=== PATIENT | female | born 1965 | race Caucasian/White ===

== ENCOUNTER 2018-08-09 16:33 | Emergency (ER) | payer MEDICAID ==
[2018-08-09] MEDS ORDERED: Tetracaine HCl/PF 0.5% 4 ML Bottle EYERT ONE (16:53)
--- NOTE | 2018-08-09 17:02 | EDM.PDOC ---
ED HPI GENERAL MEDICAL PROBLEM - General Chief Complaint: Eye Problems Stated Complaint: SOMETHING IN LEFT EYE Time Seen by Provider: 08/09/18 16:53 - History of Present Illness INITIAL COMMENTS - FREE TEXT/NARRATIVE: HISTORY AND PHYSICAL: History of present illness: Patient is a 53-year-old white female presents concern of eye redness and discomfort described as a burning 1 day she denies visual disturbances denies trauma history glaucoma denies nausea vomiting Review of systems: As per history of present illness and below otherwise all systems reviewed and negative. Past medical history: As per history of present illness and as reviewed below otherwise noncontributory. Surgical history: As per history of present illness and as reviewed below otherwise noncontributory. Social history: No reported history of drug or alcohol abuse. Family history: As per history of present illness and as reviewed below otherwise noncontributory. Physical exam: HEENT: Atraumatic, normocephalic, pupils reactive, conjunctiva is injected there is no fluoroscein uptake noted at 5 o'clock position centrally no foreign body anterior chambers clear, mucous membranes moist, throat clear, neck supple , nontender, trachea midline. Lungs: Clear to auscultation, breath sounds equal bilaterally, chest nontender. Heart: S1S2, regular, negative for clicks, rubs, or JVD. Abdomen: Soft, nondistended, nontender. Negative for masses or hepatosplenomegaly. Negative for costovertebral tenderness. Pelvis: Stable nontender. Genitourinary: Deferred. Rectal: Deferred. Extremities: Atraumatic, negative for cords or calf pain. Neurovascular unremarkable. Neuro: Awake, alert, oriented. Cranial nerves II through XII unremarkable. Cerebellum unremarkable. Motor and sensory unremarkable throughout. Exam nonfocal. Diagnostics: Corneal staining Therapeutics: Tetracaine ophthalmic drops irrigation erythromycin ophthalmic ointment Impression: #1 corneal abrasion left eye Definitive disposition and diagnosis as appropriate pending reevaluation and review of above. left eye Pain Score (Numeric/FACES): 9 - Related Data Allergies Allergy/AdvReac Type Severity Reaction Status Date / Time codeine Allergy Cannot Verified 08/09/18 16:46 Remember Sulfa (Sulfonamide Allergy Cannot Verified 08/09/18 16:46 Antibiotics) Remember Home Meds: Home Meds Levothyroxine 175 mcg PO DAILY 08/09/18 [History] Meloxicam 7.5 mg PO DAILY 08/09/18 [History] Past Medical History Other Musculoskeletal History: plantar faciatis Psychiatric History: Reports: Depression - Infectious Disease History Infectious Disease History: Reports: Chicken Pox, Measles - Past Surgical History GI Surgical History: Reports: Cholecystectomy Female Surgical History: Reports: Hysterectomy Endocrine Surgical History: Reports: Thyroidectomy Social & Family History - Family History Family Medical History: Noncontributory - Tobacco Use Smoking Status *Q: Never Smoker - Recreational Drug Use Recreational Drug Use: No ED ROS GENERAL - Review of Systems Review Of Systems: ROS reveals no pertinent complaints other than HPI. ED EXAM GENERAL W FULL EYE - Physical Exam Exam: See Below (See dictation) Course - Vital Signs Last Recorded V/S: Last Vital Signs Temp 36.1 C 08/09/18 16:49 Pulse 96 08/09/18 16:49 Resp 18 08/09/18 16:49 BP 137/99 H 08/09/18 16:49 Pulse Ox 94 L 08/09/18 16:49 - Orders/Labs/Meds Meds: Medications Discontinued Medications Generic Name Dose Route Start Last Admin Trade Name Freq PRN Reason Stop Dose Admin Tetracaine HCl 5 ml 08/09/18 16:53 Tetracaine 0.5% Steri-Unit Bailee EYERT 08/09/18 16:54 ASDIRECTED ONE Departure - Departure Time of Disposition: 17:02 Disposition: Home, Self-Care 01 Condition: Good Clinical Impression: Corneal abrasion - Discharge Information Referrals: PCP,None [Primary Care Provider] - Additional Instructions: The following information is given to patients seen in the emergency department who are being discharged to home. This information is to outline your options for follow-up care. We provide all patients seen in our emergency department with a follow-up referral. The need for follow-up, as well as the timing and circumstances, are variable depending upon the specifics of your emergency department visit. If you don't have a primary care physician on staff, we will provide you with a referral. We always advise you to contact your personal physician following an emergency department visit to inform them of the circumstance of the visit and for follow-up with them and/or the need for any referrals to a consulting specialist. The emergency department will also refer you to a specialist when appropriate. This referral assures that you have the opportunity for followup care with a specialist. All of these measure are taken in an effort to provide you with optimal care, which includes your followup. Under all circumstances we always encourage you to contact your private physician who remains a resource for coordinating your care. When calling for followup care, please make the office aware that this follow-up is from your recent emergency room visit. If for any reason you are refused follow-up, please contact the [facility] emergency department at and asked to speak to the emergency department charge nurse. [facility] [address] [place] [id number] Follow-up ophthalmology clinic call for appointment return as needed as discussed
[2018-08-09] MEDS ORDERED: Erythromycin Base 0.5% Ophth Oint 1 GM Tube EYEBOTH ONE (17:07)
== END 2018-08-09 17:24 | disposition home or self-care (01) ==
LOC: MW.ED 16:33
DX: S05.02XA Injury of conjunctiva and corneal abrasion without foreign body, left eye, initial encounter (principal); Z88.5 Allergy status to narcotic agent; Z88.2 Allergy status to sulfonamides; Z79.899 Other long term (current) drug therapy; X58.XXXA Exposure to other specified factors, initial encounter
CPT/HCPCS: 99283; A9270

== ENCOUNTER 2018-09-16 07:06 | Emergency (ER) | payer MEDICAID ==
[2018-09-16] MEDS ORDERED: Acetaminophen/HYDROcodone 325-7.5 MG Tab PO ONE (08:03)
[2018-09-16] MEDS ORDERED: Ketorolac 60 MG/2 ML SDV IM ONE (08:04)
--- NOTE | 2018-09-17 10:03 | CR ---
EXAM DATE: 09/16/18 PATIENT'S AGE: 53 Patient: RHONDA BHAKTA Facility: [place], [place] Site . Site : 1965 Study: XRay Chest Left RIBS-09/16/2018 8:38:45 AM Ordering Physician: JOSE Final Report: INDICATION: Pain after fall 3 weeks ago TECHNIQUE: PA chest and 2 left ribs. FINDINGS: The lungs are clear. There is no evidence of pulmonary contusion, pneumothorax or pleural effusion. The heart and pulmonary vessels are of normal size. Oblique detail views of the ribs demonstrate no evidence of fracture or intrinsic bone lesion. There is no evidence of pleural hematoma. Curvilinear metallic opacity below the medial left breast looks again needle. IMPRESSION: No fracture. Query possible retained needle or other surgical sequela below the left breast. Dictated by Osman Rivera MD @ Sep 16 2018 8:46AM (Electronic Signature) Report Signed by Proxy. NATHALY
== END 2018-09-16 09:10 | disposition home or self-care (01) ==
LOC: MW.ED 07:06
DX: R07.89 Other chest pain (principal)
CPT/HCPCS: 71101; 93005; 96372; 99283; A9270; J1885

== ENCOUNTER 2018-11-07 19:26 | Emergency (ER) | payer MEDICAID ==
--- NOTE | 2018-11-07 19:56 | EDM.PDOC ---
ED HPI GENERAL MEDICAL PROBLEM - General Chief Complaint: Back Pain or Injury Stated Complaint: PAIN IN LEFT LEG AND LOWER BACK Time Seen by Provider: 11/07/18 19:55 Source of Information: Reports: Patient History Limitations: Reports: No Limitations - History of Present Illness INITIAL COMMENTS - FREE TEXT/NARRATIVE: HISTORY AND PHYSICAL: History of present illness: Patient is a 53-year-old female presents to the ED today with concern for left- sided hip, thigh, and low back pain 1 week. Patient states over the week the pain has progressively worsened to where she is now having a difficult time walking. Patient denies any trauma or injury to her leg. She states she's also noticed a slight increase in swelling of the generalized leg. Patient denies any prior injury to the leg. Patient has not taken anything for her symptoms. Patient denies fever, chills, chest pain, shortness of breath, or cough. Denies headache, neck stiff ness, change in vision, syncope, or near syncope. Denies nausea, vomiting, abdominal pain, diarrhea, constipation, or dysuria. Has not noted any blood in urine or stool. Patient has been eating and drinking appropriately. Patient denies any health history. Review of systems: As per history of present illness and below otherwise all systems reviewed and negative. Past medical history: As per history of present illness and as reviewed below otherwise noncontributory. Surgical history: As per history of present illness and as reviewed below otherwise noncontributory. Social history: See social history for further information Family history: As per history of present illness and as reviewed below otherwise noncontributory. Physical exam: General: Patient is alert, oriented, and in no acute distress. Patient sitting comfortably on exam table. HEENT: Atraumatic, normocephalic, pupils equal and reactive bilaterally, negative for conjunctival pallor or scleral icterus, mucous membranes moist, TMs normal bilaterally, throat clear, neck supple, nontender, trachea midline. No drooling or trismus noted. No meningeal signs. No hot potato voice noted. Lungs: Clear to auscultation, breath sounds equal bilaterally, chest nontender. Heart: S1S2, regular rate and rhythm without overt murmur Abdomen: Soft, nondistended, nontender. Negative for masses or hepatosplenomegaly. Negative for costovertebral tenderness. Pelvis: Stable nontender. Genitourinary: Deferred. Rectal: Deferred. Skin: Intact, warm, dry. No lesions or rashes noted. Extremities: Negative for cords or calf pain. Neurovascular unremarkable. Patient does have pain with palpation of the left hip and thigh. There is mild increase in swelling of the left thigh without erythema. Range of motion of the hip is limited due to pain. Dorsalis pedis and posterior tibial pulses are grossly intact upper extremity. Capillary refill less than 2 seconds. Negative pain to palpation of the spinous process of complete spine without obvious deformities, step-offs, or crepitus. Neuro: Awake, alert, oriented. Cranial nerves II through XII unremarkable. Cerebellum unremarkable. Motor and sensory unremarkable throughout. Exam nonfocal. Patient does have limp with walking, favoring the right leg. Notes: Dr. Paniagua was directly involved in patients care. Discussed the importance for follow-up with a primary care provider and ortho provider. Voices understanding and is agreeable to plan of care. Denies any further questions or concerns at this time. Diagnostics: Lumbar x-ray, left hip x-ray, Femur XR, Lower extremity venous Doppler Therapeutics: Toradol Prescription: Diclofenac, Flexeril, Medrol dose pack Impression: Left hip/leg pain, unspecified Plan: 1. Rest, ice, elevate the affected area. You can apply ice and or heat 15 minutes on, 15 minutes off. 2. Take medications as prescribed and as directed for pain management or discomfort. 3. Follow up with your primary care provider and orthopedic provider as discussed. Return to the ED as needed and as discussed. Definitive disposition and diagnosis as appropriate pending reevaluation and review of above. Left Leg Pain Score (Numeric/FACES): 7 - Related Data Allergies Allergy/AdvReac Type Severity Reaction Status Date / Time codeine Allergy Cannot Verified 11/07/18 19:38 Remember Sulfa (Sulfonamide Allergy Cannot Verified 11/07/18 19:38 Antibiotics) Remember Home Meds: Home Meds Levothyroxine 175 mcg PO DAILY 08/09/18 [History] Meloxicam 7.5 mg PO DAILY 08/09/18 [History] FLUoxetine [PROzac] 150 mg PO DAILY 11/07/18 [History] Past Medical History Other Musculoskeletal History: plantar faciatis Psychiatric History: Reports: Depression - Infectious Disease History Infectious Disease History: Reports: Chicken Pox, Measles, Mumps - Past Surgical History GI Surgical History: Reports: Cholecystectomy Female Surgical History: Reports: Hysterectomy, Tubal Ligation Endocrine Surgical History: Reports: Thyroidectomy Social & Family History - Family History Family Medical History: Noncontributory - Tobacco Use Smoking Status *Q: Never Smoker - Caffeine Use Caffeine Use: Reports: Coffee, Energy Drinks, Soda - Recreational Drug Use Recreational Drug Use: No ED ROS GENERAL - Review of Systems Review Of Systems: ROS reveals no pertinent complaints other than HPI. ED EXAM,LOWER BACK PAIN/INJURY - Physical Exam Exam: See Below (See dictation) Course - Vital Signs Last Recorded V/S: Last Vital Signs Temp 36.7 C 11/07/18 19:39 Pulse 96 11/07/18 19:39 Resp 16 11/07/18 19:39 BP 125/83 11/07/18 19:39 Pulse Ox 97 11/07/18 19:39 - Orders/Labs/Meds Orders: Active Orders 24 hr Category Date Time Status Pelvis 1V or 2V [CR] Stat Exams 11/07/18 21:35 Stop Req Meds: Medications Discontinued Medications Generic Name Dose Route Start Last Admin Trade Name Freq PRN Reason Stop Dose Admin Ketorolac Tromethamine 60 mg 11/07/18 20:06 11/07/18 20:15 Toradol IM 11/07/18 20:07 60 mg ONETIME ONE Administration Departure - Departure Time of Disposition: 21:40 Disposition: Home, Self-Care 01 Clinical Impression: Hip pain Qualifiers: Laterality: left Qualified Code(s): M25.552 - Pain in left hip - Discharge Information Referrals: PCP,Not In Area [Primary Care Provider] - Forms: ED Department Discharge Additional Instructions: The following information is given to patients seen in the emergency department who are being discharged to home. This information is to outline your options for follow-up care. We provide all patients seen in our emergency department with a follow-up referral. The need for follow-up, as well as the timing and circumstances, are variable depending upon the specifics of your emergency department visit. If you don't have a primary care physician on staff, we will provide you with a referral. We always advise you to contact your personal physician following an emergency department visit to inform them of the circumstance of the visit and for follow-up with them and/or the need for any referrals to a consulting specialist. The emergency department will also refer you to a specialist when appropriate. This referral assures that you have the opportunity for follow-up care with a specialist. All of these measure are taken in an effort to provide you with optimal care, which includes your follow-up. Under all circumstances we always encourage you to contact your private physician who remains a resource for coordinating your care. When calling for follow-up care, please make the office aware that this follow-up is from your recent emergency room visit. If for any reason you are refused follow-up, please contact the [facility] Emergency Department at and asked to speak to the emergency department charge nurse. [facility] [address] [place] [id number] [facility] [address] [place] [id number] 1. Rest, ice, elevate the affected area. You can apply ice and or heat 15 minutes on, 15 minutes off. 2. Take medications as prescribed and as directed for pain management or discomfort. 3. Follow up with your primary care provider and orthopedic provider as discussed. Return to the ED as needed and as discussed. - My Orders Last 24 Hours: My Active Orders 11/07/18 21:35 Pelvis 1V or 2V [CR] Stat - Assessment/Plan Last 24 Hours: My Active Orders 11/07/18 21:35 Pelvis 1V or 2V [CR] Stat
[2018-11-07] MEDS ORDERED: Ketorolac 60 MG/2 ML SDV IM ONE (20:06)
--- NOTE | 2018-11-07 21:30 | US ---
INDICATION: Left upper leg pain x1 week TECHNIQUE: Ultrasound venous duplex lower left extremity. Compression venous exam was performed using munson-scale, color Doppler, and spectral Doppler analysis. COMPARISON: None FINDINGS: Sonographic imaging demonstrates the left common femoral, deep femoral, superficial femoral, popliteal, posterior tibial and greater saphenous veins to be fully compressible with normal color Doppler blood flow. IMPRESSION: Normal left lower extremity venous ultrasound, no sign of deep venous thrombosis. Dictated by Ismael George MD @ 11/07/2018 9:28:36 PM Dictated by: Ismael George MD @ 11/07/2018 21:28:41 (Electronically Signed)
--- NOTE | 2018-11-07 21:32 | CR ---
INDICATION: Low back pain, no history of trauma TECHNIQUE: Lumbar spine 3 view. COMPARISON: None available FINDINGS: There is normal lumbar lordosis. The vertebral body heights are maintained and in good alignment. There are 5 [id number] lumbar type vertebral bodies. There is mild disc space narrowing at the L5-S1 level. Tiny anterior osteophytes are seen throughout the lumbar spine. Negative for acute fracture. A surgical clip is seen within the right upper quadrant. IMPRESSION: Early degenerative changes of the lumbar spine. Dictated by Carlyn Gerardo MD @ 11/07/2018 9:31:10 PM Dictated by: Carlyn Gerardo MD @ 11/07/2018 21:31:53 (Electronically Signed)
--- NOTE | 2018-11-07 21:34 | CR ---
INDICATION: Left leg pain, no history of trauma. TECHNIQUE: X-ray left femur, 2 views. COMPARISON: None available. FINDINGS: The femoral head is well formed and well seated within the acetabulum. Negative for acute fracture. No osseous abnormality is seen. The overlying soft tissues unremarkable. No radiopaque foreign body is visualized. IMPRESSION: Unremarkable radiographs of the left femur. Dictated by Carlyn Gerardo MD @ 11/07/2018 9:33:42 PM Dictated by: Carlyn Gerardo MD @ 11/07/2018 21:33:50 (Electronically Signed)
--- NOTE | 2018-11-07 21:36 | CR ---
INDICATION: Left hip pain, no history of trauma TECHNIQUE: X-ray left hip, two views COMPARISON: None available FINDINGS: The femoral head is well formed and well seated within the acetabulum. Negative for acute fracture or dislocation. The overlying soft tissues unremarkable. No radiopaque foreign body is visualized. IMPRESSION: Unremarkable radiographs of the left hip. Dictated by Carlyn Gerardo MD @ 11/07/2018 9:34:53 PM Dictated by: Carlyn Gerardo MD @ 11/07/2018 21:35:01 (Electronically Signed)
== END 2018-11-07 21:49 | disposition home or self-care (01) ==
LOC: MW.ED 19:26
DX: M25.552 Pain in left hip (principal); F32.9 Major depressive disorder, single episode, unspecified; Z88.2 Allergy status to sulfonamides; Z88.5 Allergy status to narcotic agent
CPT/HCPCS: 72100; 73502; 73552; 93971; 96372; 99284; J1885

== ENCOUNTER 2018-11-23 19:08 | Emergency (ER) | payer MEDICAID ==
--- NOTE | 2018-11-23 19:13 | EDM.PDOC ---
ED HPI GENERAL MEDICAL PROBLEM - General Chief Complaint: Lower Extremity Injury/Pain Stated Complaint: LEFT LEG INJURY Time Seen by Provider: 11/23/18 19:09 Source of Information: Reports: Patient History Limitations: Reports: No Limitations - History of Present Illness INITIAL COMMENTS - FREE TEXT/NARRATIVE: HISTORY AND PHYSICAL: History of present illness: Review of systems: As per history of present illness and below otherwise all systems reviewed and negative. Past medical history: As per history of present illness and as reviewed below otherwise noncontributory. Surgical history: As per history of present illness and as reviewed below otherwise noncontributory. Social history: See social history for further information Family history: As per history of present illness and as reviewed below otherwise noncontributory. Physical exam: General: Well-developed and well-nourished 53-year-old female. Alert and oriented. Nontoxic appearing and in no acute distress HEENT: Atraumatic, normocephalic, pupils equal and reactive bilaterally, negative for conjunctival pallor or scleral icterus, mucous membranes moist, TMs normal bilaterally, throat clear, neck supple, nontender, trachea midline. No drooling or trismus noted. No meningeal signs. No hot potato voice noted. Lungs: Clear to auscultation, breath sounds equal bilaterally, chest nontender. Heart: S1S2, regular rate and rhythm without overt murmur Abdomen: Soft, nondistended, nontender. Negative for masses or hepatosplenomegaly. Negative for costovertebral tenderness. Pelvis: Stable nontender. Genitourinary: Deferred. Rectal: Deferred. Skin: Intact, warm, dry. No lesions or rashes noted. Extremities: Atraumatic, moves all extremities per self without difficulty or deficits, negative for cords or calf pain. Neurovascular unremarkable. Neuro: Awake, alert, oriented. Cranial nerves II through XII unremarkable. Cerebellum unremarkable. Motor and sensory unremarkable throughout. Exam nonfocal. Notes: Supportive care measures were reviewed and discussed. Voices understanding and is agreeable to plan of care. Denies any further questions or concerns at this time. Diagnostics: Therapeutics: Prescription: Impression: Plan: Definitive disposition and diagnosis as appropriate pending reevaluation and review of above. - Related Data Allergies Allergy/AdvReac Type Severity Reaction Status Date / Time codeine Allergy Cannot Verified 11/07/18 19:38 Remember Sulfa (Sulfonamide Allergy Cannot Verified 11/07/18 19:38 Antibiotics) Remember Home Meds: Home Meds Levothyroxine 175 mcg PO DAILY 08/09/18 [History] Meloxicam 7.5 mg PO DAILY 08/09/18 [History] FLUoxetine [PROzac] 150 mg PO DAILY 11/07/18 [History] Past Medical History Other Musculoskeletal History: plantar faciatis Psychiatric History: Reports: Depression - Infectious Disease History Infectious Disease History: Reports: Chicken Pox, Measles, Mumps - Past Surgical History GI Surgical History: Reports: Cholecystectomy Female Surgical History: Reports: Hysterectomy, Tubal Ligation Endocrine Surgical History: Reports: Thyroidectomy Social & Family History - Family History Family Medical History: Noncontributory - Caffeine Use Caffeine Use: Reports: Coffee, Energy Drinks, Soda Departure - Discharge Information Referrals: PCP,None [Primary Care Provider] -
[2018-11-23] MEDS ORDERED: Ondansetron 4 MG/2 ML SDV IVPUSH ONE (19:44)
[2018-11-23] MEDS ORDERED: Ketorolac 30 MG/ML SDV IVPUSH ONE (19:44)
[2018-11-23] MEDS ORDERED: Sodium Chloride 0.9% 10 ML Syringe FLUSH PRN (19:45)
[2018-11-23] MEDS ORDERED: Sodium Chloride 0.9% 2.5 ML Syringe FLUSH PRN (19:45)
[2018-11-23] MEDS ORDERED: HYDROmorphone 1 MG/ML Syringe IVPUSH ONE (19:46)
[2018-11-23] MEDS ORDERED: methylPREDNISolone Sodium Succinate 125 MG/2 ML SDV IVPUSH ONE (19:46)
--- NOTE | 2018-11-23 19:49 | EDM.PDOC ---
ED HPI GENERAL MEDICAL PROBLEM - General Chief Complaint: Lower Extremity Injury/Pain Stated Complaint: LEFT LEG INJURY Time Seen by Provider: 11/23/18 19:09 - History of Present Illness INITIAL COMMENTS - FREE TEXT/NARRATIVE: HISTORY AND PHYSICAL: History of present illness: The patient is a 53-year-old female who has been working with a chiropractor over the last few weeks for left sciatica and presents after one of her grandchildren stepped on her flip flop causing her to lose her balance and almost fall forward that she caught herself and since then the pain has been aggravated. The patient says that she did not fall to the ground hitting her head pass out or black out and did not impact any of her bony extremities. She said that he catching herself she twisted and it seems to have reaggravated her sciatica. She says that up until this point she has been working with a chiropractor several times a week and the pain has almost completely dissipated. The patient was seen here the end of October for same and says she is doing much better since that visit. Prior to these events she was in her usual state of good health without systemic issues. She says the pain originates in her left butt cheek and radiates around her left thigh and shoots to her leg. She has no weakness in her leg but there is pain with movement. She has no midline back pain and no bowel or bladder disturbances Review of systems: As per history of present illness and below otherwise all systems reviewed and negative. Past medical history: As per history of present illness and as reviewed below otherwise noncontributory. Surgical history: As per history of present illness and as reviewed below otherwise noncontributory. Social history: No reported history of drug or alcohol abuse. Family history: As per history of present illness and as reviewed below otherwise noncontributory. Physical exam: HEENT: Atraumatic, normocephalic, negative for conjunctival pallor or scleral icterus, mucous membranes moist, throat clear, neck supple, nontender, trachea midline. Lungs: Clear to auscultation, breath sounds equal bilaterally, chest nontender. Heart: S1S2, regular, negative for clicks, rubs, or JVD. Abdomen: Soft, nondistended, nontender. Negative for masses or hepatosplenomegaly. Negative for costovertebral tenderness. Pelvis: Stable nontender. Genitourinary: Deferred. Rectal: Deferred. Extremities: Atraumatic, negative for cords or calf pain. Neurovascular unremarkable. No palpable bony deformities defects or tenderness Neuro: Awake, alert, oriented. Cranial nerves II through XII unremarkable. Cerebellum unremarkable. Motor and sensory unremarkable throughout. Exam nonfocal. Dorsi and plantar flexion is intact 5/5 inclusive of the great toe bilaterally and patellar reflexes are brisk +2 over 4 bilaterally. Back: There are no midline step-offs tenderness defects of the lumbar spine and there is no posterior pelvis tenderness but when I palpate within the buttocks tissue patient says it is exquisitely painful. The patient cannot flex at the hip or do a straight leg rise more than 10-15 without significant discomfort. Diagnostics: [] Therapeutics: IV placement, Dilaudid Zofran Toradol Solu-Medrol Valium Patient is feeling much improved and we will plan for discharge. I've advised her to connect with a provider in the clinic as well as her chiropractor Impression: Acute on chronic left sciatica Definitive disposition and diagnosis as appropriate pending reevaluation and review of above. Left Leg Pain Score (Numeric/FACES): 10 - Related Data Allergies Allergy/AdvReac Type Severity Reaction Status Date / Time codeine Allergy Cannot Verified 11/23/18 19:20 Remember Sulfa (Sulfonamide Allergy Cannot Verified 11/23/18 19:20 Antibiotics) Remember Home Meds: Home Meds Levothyroxine 175 mcg PO DAILY 08/09/18 [History] Meloxicam 7.5 mg PO DAILY 08/09/18 [History] FLUoxetine [PROzac] 150 mg PO DAILY 11/07/18 [History] Past Medical History Other Musculoskeletal History: plantar faciatis Psychiatric History: Reports: Depression - Infectious Disease History Infectious Disease History: Reports: Chicken Pox, Measles, Mumps - Past Surgical History GI Surgical History: Reports: Cholecystectomy Female Surgical History: Reports: Hysterectomy, Tubal Ligation Endocrine Surgical History: Reports: Thyroidectomy Social & Family History - Family History Family Medical History: Noncontributory - Tobacco Use Smoking Status *Q: Never Smoker - Caffeine Use Caffeine Use: Reports: Coffee, Energy Drinks, Soda - Recreational Drug Use Recreational Drug Use: No ED ROS GENERAL - Review of Systems Review Of Systems: ROS reveals no pertinent complaints other than HPI. ED EXAM, GENERAL - Physical Exam Exam: See Below (see dictation) Course - Vital Signs Last Recorded V/S: Last Vital Signs Temp 36.2 C 11/23/18 19:21 Pulse 91 11/23/18 19:21 Resp 24 H 11/23/18 19:21 BP 161/83 H 11/23/18 19:21 Pulse Ox 100 11/23/18 19:21 - Orders/Labs/Meds Orders: Active Orders 24 hr Category Date Time Status Sodium Chloride 0.9% [Saline Flush] Med 11/23/18 19:45 Active 10 ml FLUSH ASDIRECTED PRN Sodium Chloride 0.9% [Saline Flush] Med 11/23/18 19:45 Active 2.5 ml FLUSH ASDIRECTED PRN Saline Lock Insert [OM.PC] Stat Oth 11/23/18 19:44 Ordered Medication Orders Sodium Chloride (Saline Flush) 10 ml FLUSH ASDIRECTED PRN PRN Reason: Keep Vein Open Last Admin: 11/23/18 20:18 Dose: 10 ml Sodium Chloride (Saline Flush) 2.5 ml FLUSH ASDIRECTED PRN PRN Reason: Keep Vein Open Last Admin: 11/23/18 20:18 Dose: 2.5 ml Meds: Medications Generic Name Dose Route Start Last Admin Trade Name Freq PRN Reason Stop Dose Admin Sodium Chloride 10 ml 11/23/18 19:45 11/23/18 20:18 Saline Flush FLUSH 10 ml ASDIRECTED PRN Administration Keep Vein Open Sodium Chloride 2.5 ml 11/23/18 19:45 11/23/18 20:18 Saline Flush FLUSH 2.5 ml ASDIRECTED PRN Administration Keep Vein Open Discontinued Medications Generic Name Dose Route Start Last Admin Trade Name Freq PRN Reason Stop Dose Admin Diazepam 1 mg 11/23/18 19:45 11/23/18 20:16 Valium IVPUSH 11/23/18 19:46 Not Given ONETIME ONE Diazepam Confirm 11/23/18 20:08 11/23/18 20:16 Valium Administered 11/23/18 20:09 Not Given Dose 5 mg .ROUTE .STK-MED ONE Diazepam 1 mg 11/23/18 20:15 11/23/18 20:17 Valium IV 11/23/18 20:16 1 mg ONETIME ONE Administration Hydromorphone HCl 1 mg 11/23/18 19:46 11/23/18 20:17 Dilaudid IVPUSH 11/23/18 19:47 1 mg ONETIME ONE Administration Ketorolac Tromethamine 30 mg 11/23/18 19:44 11/23/18 20:17 Toradol IVPUSH 11/23/18 19:45 30 mg ONETIME ONE Administration Methylprednisolone Sodium Succinate 125 mg 11/23/18 19:46 11/23/18 20:17 Solu-Medrol IVPUSH 11/23/18 19:47 125 mg ONETIME ONE Administration Ondansetron HCl 4 mg 11/23/18 19:44 11/23/18 20:17 Zofran IVPUSH 11/23/18 19:45 4 mg ONETIME ONE Administration Departure - Departure Time of Disposition: 20:49 Disposition: Home, Self-Care 01 Condition: Good Clinical Impression: Left sided sciatica - Discharge Information Referrals: PCP,None [Primary Care Provider] - Forms: ED Department Discharge Additional Instructions: The following information is given to patients seen in the emergency department who are being discharged to home. This information is to outline your options for follow-up care. We provide all patients seen in our emergency department with a follow-up referral. The need for follow-up, as well as the timing and circumstances, are variable depending upon the specifics of your emergency department visit. If you don't have a primary care physician on staff, we will provide you with a referral. We always advise you to contact your personal physician following an emergency department visit to inform them of the circumstance of the visit and for follow-up with them and/or the need for any referrals to a consulting specialist. The emergency department will also refer you to a specialist when appropriate. This referral assures that you have the opportunity for followup care with a specialist. All of these measure are taken in an effort to provide you with optimal care, which includes your followup. Under all circumstances we always encourage you to contact your private physician who remains a resource for coordinating your care. When calling for followup care, please make the office aware that this follow-up is from your recent emergency room visit. If for any reason you are refused follow-up, please contact the [facility] emergency department at and ask to speak to the emergency department charge nurse. [facility] Primary care- Internal Medicine and Family [place] [id number] [place] [address] Take all medications as prescribed and please connect with your chiropractor as well as a clinic provider as you may need more medication going forward to help manage this acute on chronic problem. Return to ER as needed and as discussed - My Orders Last 24 Hours: My Active Orders 11/23/18 19:44 Saline Lock Insert [OM.PC] Stat 11/23/18 19:45 Sodium Chloride 0.9% [Saline Flush] 10 ml FLUSH ASDIRECTED PRN Sodium Chloride 0.9% [Saline Flush] 2.5 ml FLUSH ASDIRECTED PRN - Assessment/Plan Last 24 Hours: My Active Orders 11/23/18 19:44 Saline Lock Insert [OM.PC] Stat 11/23/18 19:45 Sodium Chloride 0.9% [Saline Flush] 10 ml FLUSH ASDIRECTED PRN Sodium Chloride 0.9% [Saline Flush] 2.5 ml FLUSH ASDIRECTED PRN
[2018-11-23] MEDS ORDERED: diazePAM 5 MG/ML MDV ONE (20:08)
[2018-11-23] MEDS ORDERED: diazePAM 5 MG/ML MDV IV ONE (20:15)
== END 2018-11-23 21:13 | disposition home or self-care (01) ==
LOC: MW.ED 19:08
DX: M54.32 Sciatica, left side (principal); F32.9 Major depressive disorder, single episode, unspecified; Z88.2 Allergy status to sulfonamides; Z88.5 Allergy status to narcotic agent; Z79.899 Other long term (current) drug therapy
CPT/HCPCS: 96374; 96375; 99283; A9270; J1170; J1885; J2405; J2930

== ENCOUNTER 2019-03-20 17:27 | Emergency (ER) | payer MEDICAID ==
[2019-03-20] MEDS ORDERED: Sodium Chloride 0.9% 2.5 ML Syringe FLUSH PRN (17:32)
[2019-03-20] MEDS ORDERED: Sodium Chloride 0.9% 10 ML SDV IV PRN (17:32)
[2019-03-20] MEDS ORDERED: Sodium Chloride 0.9% 10 ML Syringe FLUSH PRN (17:32)
--- NOTE | 2019-03-20 17:53 | CT ---
INDICATION: 54-year-old female. Left side facial numbness and pain. Stroke code. TECHNIQUE: CT images foramen [place] vertex are obtained without contrast axial coronal and sagittal reformatted images are reviewed. FINDINGS: The lateral 3rd and 4th ventricles normal in size and shape. No acute intracranial hemorrhage. No mass effect. Preservation of munson-white interface. No hyperdense cerebral artery sign. No evidence of recent ischemic infarction. No areas of abnormal brain density. Bony calvarium is unremarkable. IMPRESSION: Normal CT brain without contrast. No evidence of acute intracranial abnormality. Please note that all CT scans at this facility use dose modulation, iterative reconstruction, and/or weight-based dosing when appropriate to reduce radiation dose to as low as reasonably achievable. Dictated by Houston Berry MD @ Mar 20 2019 5:51PM Signed by Dr. Houston Berry @ Mar 20 2019 5:52PM
[2019-03-20] MEDS ORDERED: methylPREDNISolone Sodium Succinate 125 MG/2 ML SDV IVPUSH ONE (18:28)
[2019-03-20] MEDS ORDERED: Acetaminophen 500 MG Tab PO ONE (18:28)
--- NOTE | 2019-03-20 18:43 | EDM.PDOC ---
ED HPI GENERAL MEDICAL PROBLEM - General Chief Complaint: Neuro Symptoms/Deficits Stated Complaint: POSSIBLE STROKE Time Seen by Provider: 03/20/19 17:32 Source of Information: Reports: Patient History Limitations: Reports: No Limitations - History of Present Illness INITIAL COMMENTS - FREE TEXT/NARRATIVE: HISTORY AND PHYSICAL: History of present illness: Patient is a 54-year-old female presents to the ED today with concern of left- sided facial pain and drooping of her lip. Patient states the symptoms began last night. Last known time well 10pm last night. Patient states the most significant symptom is how painful the area is to the touch. 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 Patient states she also feels as if the hearing on the left side is more sensitive. Patient denies any trauma or injury or any weakness. Patient denies fever, chills, chest pain, shortness of breath, or cough. Denies headache, neck stiff ness, change in vision, syncope, or near syncope. Denies nausea, vomiting, abdominal pain, diarrhea, constipation, or dysuria. Has not noted any blood in urine or stool. Patient has been eating and drinking appropriately. Review of systems: As per history of present illness and below otherwise all systems reviewed and negative. Past medical history: As per history of present illness and as reviewed below otherwise noncontributory. Surgical history: As per history of present illness and as reviewed below otherwise noncontributory. Social history: See social history for further information Family history: As per history of present illness and as reviewed below otherwise noncontributory. Physical exam: General: Patient is alert, oriented, and in no acute distress. Patient laying comfortably on exam table. HEENT: SEe neuro: Atraumatic, normocephalic, pupils equal and reactive bilaterally, negative for conjunctival pallor or scleral icterus, mucous membranes moist, TMs normal bilaterally, throat clear, neck supple, nontender, trachea midline. No drooling or trismus noted. No meningeal signs. No hot potato voice noted. Lungs: Clear to auscultation, breath sounds equal bilaterally, chest nontender. Heart: S1S2, regular rate and rhythm without overt murmur Abdomen: Soft, nondistended, nontender. Negative for masses or hepatosplenomegaly. Negative for costovertebral tenderness. Pelvis: Stable nontender. Genitourinary: Deferred. Rectal: Deferred. Skin: Intact, warm, dry. No lesions or rashes noted. Extremities: Atraumatic, negative for cords or calf pain. Neurovascular unremarkable. Patient will range of motion of bilateral upper and bilateral lower extremities without deficit. Patient did walk into the ED today without difficulty. Neuro: Awake, alert, oriented. Cerebellum unremarkable. Motor and sensory unremarkable throughout.Patient does have some weakness of the left side of her mouth when asked to smile. She does have a circular area of edema/erythema on her maxilla bone/inferior to her eye that slightly obscures her smile an ability to assess for true weakness of her smile. Patient is able to raise both of her eyebrows and squint. The left side of patient's face is quite tender and painful to the touch. Otherwise, exam non focal. and all other cranial nerves II through XII unremarkable. Notes: Stroke code was called upon arrival to the ED Dr. Paniagua directly involved in patient care. Voices understanding and is agreeable to plan of care. Denies any further questions or concerns at this time. Diagnostics: Head CT, CBC, CMP, UA, EKG, chest x-ray, troponin, maxillofacial CT Therapeutics: solumedrol, Tylenol Prescription: Keflex Impression: Preseptal cellulitis Plan: 1. Take medication as prescribed. You can alternate ibuprofen and Tylenol as directed for pain and discomfort. 2. Follow-up with primary care provider as discussed. Return to the ED as needed and as discussed. Definitive disposition and diagnosis as appropriate pending reevaluation and review of above. Left Face/Facial Pain Score (Numeric/FACES): 7 - Related Data Allergies Allergy/AdvReac Type Severity Reaction Status Date / Time codeine Allergy Cannot Verified 03/20/19 17:36 Remember Sulfa (Sulfonamide Allergy Cannot Verified 03/20/19 17:36 Antibiotics) Remember Home Meds: Home Meds Levothyroxine 175 mcg PO DAILY 08/09/18 [History] Meloxicam 7.5 mg PO DAILY 08/09/18 [History] Escitalopram [Lexapro] 20 mg PO DAILY 03/20/19 [History] Past Medical History Other Musculoskeletal History: plantar faciatis Psychiatric History: Reports: Depression - Infectious Disease History Infectious Disease History: Reports: None - Past Surgical History GI Surgical History: Reports: Cholecystectomy Female Surgical History: Reports: Hysterectomy, Tubal Ligation Endocrine Surgical History: Reports: Thyroidectomy Social & Family History - Family History Family Medical History: Noncontributory - Tobacco Use Smoking Status *Q: Never Smoker Second Hand Smoke Exposure: No - Caffeine Use Caffeine Use: Reports: None - Recreational Drug Use Recreational Drug Use: No ED ROS GENERAL - Review of Systems Review Of Systems: ROS reveals no pertinent complaints other than HPI. ED EXAM, GENERAL - Physical Exam Exam: See Below (See dictation) Course - Vital Signs Last Recorded V/S: Last Vital Signs Temp 35.9 C 03/20/19 17:36 Pulse 72 03/20/19 19:19 Resp 18 03/20/19 19:19 BP 137/71 03/20/19 19:19 Pulse Ox 98 03/20/19 19:19 - Orders/Labs/Meds Orders: Active Orders 24 hr Category Date Time Status Assess Neurological Status [RC] ASDIRECTED Care 03/20/19 17:32 Active Bedrest [RC] ASDIRECTED Care 03/20/19 17:32 Active Cardiac Monitoring [RC] . DIRECTED Care 03/20/19 17:32 Active EKG Documentation Completion [RC] STAT Care 03/20/19 17:32 Active Height and Weight [RC] UPON Care 03/20/19 17:32 Active Initiate Acute Stroke Protocol [RC] STAT Care 03/20/19 17:32 Active NIH Stroke Scale [RC] ASDIRECTED Care 03/20/19 17:32 Active Nursing Bedside Swallow Screen [RC] ASDIRECTED Care 03/20/19 17:32 Active Oxygen Therapy [RC] ASDIRECTED Care 03/20/19 17:32 Active Stroke Education, General [RC] Click to Edit Care 03/20/19 17:32 Active Vital Signs [RC] Q15M Care 03/20/19 17:32 Active CULTURE URINE [RM] Stat Lab 03/20/19 18:20 Received Sodium Chloride 0.9% [Normal Saline] Med 03/20/19 17:32 Active 10 ml IV ASDIRECTED PRN Sodium Chloride 0.9% [Saline Flush] Med 03/20/19 17:32 Active 10 ml FLUSH ASDIRECTED PRN Sodium Chloride 0.9% [Saline Flush] Med 03/20/19 17:32 Active 2.5 ml FLUSH ASDIRECTED PRN Peripheral IV Insertion Adult [OM.PC] Stat Oth 03/20/19 17:32 Ordered Medication Orders Sodium Chloride (Saline Flush) 10 ml FLUSH ASDIRECTED PRN PRN Reason: Keep Vein Open Last Admin: 03/20/19 18:34 Dose: 10 ml Sodium Chloride (Saline Flush) 2.5 ml FLUSH ASDIRECTED PRN PRN Reason: Keep Vein Open Last Admin: 03/20/19 18:34 Dose: 2.5 ml Sodium Chloride (Normal Saline) 10 ml IV ASDIRECTED PRN PRN Reason: IV Use Labs: Laboratory Tests 03/20/19 03/20/19 03/20/19 Range/Units 18:20 18:25 18:25 WBC 5.92 (4.0-11.0) K/uL RBC 4.40 (4.30-5.90) M/uL Hgb 13.0 (12.0-16.0) g/dL Hct 38.9 (36.0-46.0) % MCV 88.4 (80.0-98.0) fL MCH 29.5 (27.0-32.0) pg MCHC 33.4 (31.0-37.0) g/dL RDW Std Deviation 43.5 (28.0-62.0) fl RDW Coeff of Nafisa 13 (11.0-15.0) % Plt Count 183 (150-400) K/uL MPV 10.70 (7.40-12.00) fL Neut % (Auto) 67.0 (48.0-80.0) % Lymph % (Auto) 23.5 (16.0-40.0) % Pike % (Auto) 7.8 (0.0-15.0) % Eos % (Auto) 1.4 (0.0-7.0) % Baso % (Auto) 0.3 (0.0-1.5) % Neut # (Auto) 4.0 (1.4-5.7) K/uL Lymph # (Auto) 1.4 (0.6-2.4) K/uL Pike # (Auto) 0.5 (0.0-0.8) K/uL Eos # (Auto) 0.1 (0.0-0.7) K/uL Baso # (Auto) 0.0 (0.0-0.1) K/uL Nucleated RBC % 0.0 /100WBC Nucleated RBCs # 0 K/uL INR 0.99 APTT 26.9 (18.6-31.3) SEC Sodium (136-145) mmol/L Potassium (3.5-5.1) mmol/L Chloride (98-107) mmol/L Carbon Dioxide (21.0-32.0) mmol/L BUN (7.0-18.0) mg/dL Creatinine (0.6-1.0) mg/dL Est Cr Clr Drug Dosing mL/min Estimated GFR (MDRD) ml/min Glucose (74-106) mg/dL Calcium (8.5-10.1) mg/dL Total Bilirubin (0.2-1.0) mg/dL AST (15-37) IU/L ALT (14-63) IU/L Alkaline Phosphatase (46-116) U/L Troponin I (0.000-0.056) ng/mL Total Protein (6.4-8.2) g/dL Albumin (3.4-5.0) g/dL Globulin (2.6-4.0) g/dL Albumin/Globulin Ratio (0.9-1.6) TSH 3rd Generation (0.36-3.74) uIU/mL Urine Color YELLOW Urine Appearance CLEAR Urine pH 5.0 (5.0-8.0) Ur Specific [place] <= 1.005 (1.001-1.035) Urine Protein NEGATIVE (NEGATIVE) mg/dL Urine Glucose (UA) NEGATIVE (NEGATIVE) mg/dL Urine Ketones NEGATIVE (NEGATIVE) mg/dL Urine Occult Blood NEGATIVE (NEGATIVE) Urine Nitrite NEGATIVE (NEGATIVE) Urine Bilirubin NEGATIVE (NEGATIVE) Urine Urobilinogen 0.2 (<2.0) EU/dL Ur Leukocyte Esterase SMALL H (NEGATIVE) Urine RBC 0-1 (0-2/HPF) Urine WBC 0-3 (0-5/HPF) Ur Epithelial Cells OCCASIONAL (NONE-FEW) Urine Bacteria RARE (NEGATIVE) Urine Mucus LIGHT (NONE-MOD) 03/20/19 Range/Units 18:25 WBC (4.0-11.0) K/uL RBC (4.30-5.90) M/uL Hgb (12.0-16.0) g/dL Hct (36.0-46.0) % MCV (80.0-98.0) fL MCH (27.0-32.0) pg MCHC (31.0-37.0) g/dL RDW Std Deviation (28.0-62.0) fl RDW Coeff of Nafisa (11.0-15.0) % Plt Count (150-400) K/uL MPV (7.40-12.00) fL Neut % (Auto) (48.0-80.0) % Lymph % (Auto) (16.0-40.0) % Pike % (Auto) (0.0-15.0) % Eos % (Auto) (0.0-7.0) % Baso % (Auto) (0.0-1.5) % Neut # (Auto) (1.4-5.7) K/uL Lymph # (Auto) (0.6-2.4) K/uL Pike # (Auto) (0.0-0.8) K/uL Eos # (Auto) (0.0-0.7) K/uL Baso # (Auto) (0.0-0.1) K/uL Nucleated RBC % /100WBC Nucleated RBCs # K/uL INR APTT (18.6-31.3) SEC Sodium 142 (136-145) mmol/L Potassium 3.6 (3.5-5.1) mmol/L Chloride 105 (98-107) mmol/L Carbon Dioxide 25.5 (21.0-32.0) mmol/L BUN 10 (7.0-18.0) mg/dL Creatinine 0.8 (0.6-1.0) mg/dL Est Cr Clr Drug Dosing 84.01 mL/min Estimated GFR (MDRD) > 60.0 ml/min Glucose 81 (74-106) mg/dL Calcium 9.2 (8.5-10.1) mg/dL Total Bilirubin 0.3 (0.2-1.0) mg/dL AST 23 (15-37) IU/L ALT 20 (14-63) IU/L Alkaline Phosphatase 77 (46-116) U/L Troponin I < 0.050 (0.000-0.056) ng/mL Total Protein 7.1 (6.4-8.2) g/dL Albumin 3.6 (3.4-5.0) g/dL Globulin 3.5 (2.6-4.0) g/dL Albumin/Globulin Ratio 1.0 (0.9-1.6) TSH 3rd Generation 0.16 L (0.36-3.74) uIU/mL Urine Color Urine Appearance Urine pH (5.0-8.0) Ur Specific [place] (1.001-1.035) Urine Protein (NEGATIVE) mg/dL Urine Glucose (UA) (NEGATIVE) mg/dL Urine Ketones (NEGATIVE) mg/dL Urine Occult Blood (NEGATIVE) Urine Nitrite (NEGATIVE) Urine Bilirubin (NEGATIVE) Urine Urobilinogen (<2.0) EU/dL Ur Leukocyte Esterase (NEGATIVE) Urine RBC (0-2/HPF) Urine WBC (0-5/HPF) Ur Epithelial Cells (NONE-FEW) Urine Bacteria (NEGATIVE) Urine Mucus (NONE-MOD) Meds: Medications Generic Name Dose Route Start Last Admin Trade Name Viridiana PRN Reason Stop Dose Admin Sodium Chloride 10 ml 03/20/19 17:32 03/20/19 18:34 Saline Flush FLUSH 10 ml ASDIRECTED PRN Administration Keep Vein Open Sodium Chloride 2.5 ml 03/20/19 17:32 03/20/19 18:34 Saline Flush FLUSH 2.5 ml ASDIRECTED PRN Administration Keep Vein Open Sodium Chloride 10 ml 03/20/19 17:32 Normal Saline IV ASDIRECTED PRN IV Use Discontinued Medications Generic Name Dose Route Start Last Admin Trade Name Viridiana PRN Reason Stop Dose Admin Acetaminophen 1,000 mg 03/20/19 18:28 03/20/19 18:33 Tylenol Extra Strength PO 03/20/19 18:29 1,000 mg ONETIME ONE Administration Ampicillin Sodium/Sulbactam 100 mls @ 200 mls/hr 03/20/19 18:55 03/20/19 19: 35 Sodium 3 gm/ Sodium Chloride IV 03/20/19 19:24 200 mls/hr ONETIME ONE Administration Sodium Chloride Confirm 03/20/19 19:18 03/20/19 19:41 Normal Saline Administered 03/20/19 19:19 Not Given Dose 100 mls @ as directed .ROUTE .STK-MED ONE Iopamidol 75 ml 03/20/19 20:17 03/20/19 20:18 Isovue Multipack-370 (76%) IVPUSH 03/20/19 20:18 75 ml ONETIME STA Administration Methylprednisolone Sodium Succinate 125 mg 03/20/19 18:28 03/20/19 18:33 Solu-Medrol IVPUSH 03/20/19 18:29 125 mg ONETIME ONE Administration Departure - Departure Time of Disposition: 20:51 Disposition: Home, Self-Care 01 Clinical Impression: Preseptal cellulitis - Discharge Information Referrals: PCP,None [Primary Care Provider] - Forms: ED Department Discharge Additional Instructions: The following information is given to patients seen in the emergency department who are being discharged to home. This information is to outline your options for follow-up care. We provide all patients seen in our emergency department with a follow-up referral. The need for follow-up, as well as the timing and circumstances, are variable depending upon the specifics of your emergency department visit. If you don't have a primary care physician on staff, we will provide you with a referral. We always advise you to contact your personal physician following an emergency department visit to inform them of the circumstance of the visit and for follow-up with them and/or the need for any referrals to a consulting specialist. The emergency department will also refer you to a specialist when appropriate. This referral assures that you have the opportunity for follow-up care with a specialist. All of these measure are taken in an effort to provide you with optimal care, which includes your follow-up. Under all circumstances we always encourage you to contact your private physician who remains a resource for coordinating your care. When calling for follow-up care, please make the office aware that this follow-up is from your recent emergency room visit. If for any reason you are refused follow-up, please contact the [facility] at and asked to speak to the emergency department charge nurse. [facility] [address] [place] [id number] [id number] 1. Take medication as prescribed. You can alternate ibuprofen and Tylenol as directed for pain and discomfort. 2. Follow-up with primary care provider as discussed. Return to the ED as needed and as discussed. - My Orders Last 24 Hours: My Active Orders 03/20/19 17:32 Assess Neurological Status [RC] ASDIRECTED Bedrest [RC] ASDIRECTED Cardiac Monitoring [RC] . DIRECTED EKG Documentation Completion [RC] STAT Height and Weight [RC] UPON Initiate Acute Stroke Protocol [RC] STAT NIH Stroke Scale [RC] ASDIRECTED Nursing Bedside Swallow Screen [RC] ASDIRECTED Oxygen Therapy [RC] ASDIRECTED Stroke Education, General [RC] Click to Edit Vital Signs [RC] Q15M Sodium Chloride 0.9% [Normal Saline] 10 ml IV ASDIRECTED PRN Sodium Chloride 0.9% [Saline Flush] 10 ml FLUSH ASDIRECTED PRN Sodium Chloride 0.9% [Saline Flush] 2.5 ml FLUSH ASDIRECTED PRN Peripheral IV Insertion Adult [OM.PC] Stat 03/20/19 18:20 CULTURE URINE [RM] Stat - Assessment/Plan Last 24 Hours: My Active Orders 03/20/19 17:32 Assess Neurological Status [RC] ASDIRECTED Bedrest [RC] ASDIRECTED Cardiac Monitoring [RC] . DIRECTED EKG Documentation Completion [RC] STAT Height and Weight [RC] UPON Initiate Acute Stroke Protocol [RC] STAT NIH Stroke Scale [RC] ASDIRECTED Nursing Bedside Swallow Screen [RC] ASDIRECTED Oxygen Therapy [RC] ASDIRECTED Stroke Education, General [RC] Click to Edit Vital Signs [RC] Q15M Sodium Chloride 0.9% [Normal Saline] 10 ml IV ASDIRECTED PRN Sodium Chloride 0.9% [Saline Flush] 10 ml FLUSH ASDIRECTED PRN Sodium Chloride 0.9% [Saline Flush] 2.5 ml FLUSH ASDIRECTED PRN Peripheral IV Insertion Adult [OM.PC] Stat 03/20/19 18:20 CULTURE URINE [RM] Stat
[2019-03-20] MEDS ORDERED: Ampicillin/Sulbactam Na 3 GM in Sodium Chloride 0.9% 100 ML IV ONE (18:55)
--- NOTE | 2019-03-20 19:07 | CR ---
INDICATION: Stroke code TECHNIQUE: Chest 1 view. COMPARISON: None FINDINGS: Cardiovascular and mediastinum: Heart size and vasculature are normal in caliber and appearance. Mediastinum is within normal limits. Lungs and pleural space: Lungs are clear. No sign of infiltrate or mass. No sign of pleural effusion. No pneumothorax. Bones and soft tissues: No significant findings. IMPRESSION: Unremarkable chest. Dictated by: Sav Smith MD @ 03/20/2019 19:05:03 (Electronically Signed)
[2019-03-20] MEDS ORDERED: Sodium Chloride 0.9% 100 ML ONE (19:18)
[2019-03-20 19:37] LABS: CARBON DIOXIDE,CO2 25.5 mmol/L (21.0-32.0); CHLORIDE,CL 105 mmol/L (98-107); POTASSIUM,K 3.6 mmol/L (3.5-5.1); SODIUM,NA 142 mmol/L (136-145)
[2019-03-20 19:44] LABS: BLOOD UREA NITROGEN,BUN 10 mg/dL (7.0-18.0); GLUCOSE RANDOM 81 mg/dL (74-106)
[2019-03-20] MEDS ORDERED: Iopamidol 755 MG/ML 500 ML Multipack Bottle IVPUSH STA (20:17)
--- NOTE | 2019-03-20 20:43 | CT ---
INDICATION: Left-sided facial swelling, tingling, pain TECHNIQUE: CT maxillofacial without contrast. 75 cc Isovue 370 COMPARISON: None FINDINGS: Facial bones: No fractures or bone lesions. Specifically the nasal bones, temporomandibular joints, maxilla and mandible appear intact. Orbits and globes: Unremarkable. Sinuses: No acute or significant findings. Soft tissues: Left preseptal/periorbital soft tissue edema. IMPRESSION: Mild left preseptal/periorbital soft tissue edema. Dictated by Ismael George MD @ 03/20/2019 8:40:56 PM Please note that all CT scans at this facility use dose modulation, iterative reconstruction, and/or weight-based dosing when appropriate to reduce radiation dose to as low as reasonably achievable. Dictated by: Ismael George MD @ 03/20/2019 20:41:02 (Electronically Signed)
== END 2019-03-20 21:09 | disposition home or self-care (01) ==
LOC: MW.ED 17:27
DX: L03.213 Periorbital cellulitis (principal); F32.9 Major depressive disorder, single episode, unspecified; Z88.5 Allergy status to narcotic agent; Z88.2 Allergy status to sulfonamides; Z79.899 Other long term (current) drug therapy
CPT/HCPCS: 36415; 70450; 70487; 71045; 80053; 81001; 84443; 84484; 85025; 85610; 85730; 87086; 93005; 96365; 96375; 99285; A9270; J0295; J2930; J7030; Q9967